=== PATIENT | female | born 1995 | race Caucasian/White ===

== ENCOUNTER 2024-04-09 16:11 | Observation (INO) ==
--- NOTE | 2024-04-09 16:28 | Emergency Department Note ---
ED Provider Note History of Present Illness Chief Complaint: Nausea Stated Complaint: NAUSEA,TROUBLE STANDING Time Seen by Provider: 04/09/24 16:25 28-year-old female who unfortunately returns to the emergency department with complaint of persistent nausea. I just discharged the patient for similar symptoms, requiring 2 rounds of IV Zofran, and a single dose of IV Phenergan for nausea control. She felt well enough for discharge, however when she left the emergency department, became nauseated again while in the parking lot. The p atient continues to deny any abdominal discomfort, reporting "feels like butterflies in my stomach". Home Medications Medication Instructions Recorded Confirmed Type bupropion HCl 100 mg tablet,12 hr 100 mg PO BID 04/09/24 04/09/24 History sustained-release fluoxetine 20 mg tablet 20 mg PO DAILY 04/09/24 04/09/24 History ibuprofen 200 mg tablet 200 mg PO Q6H PRN Pain 04/09/24 04/09/24 History metformin 500 mg tablet,extended 500 mg PO DAILY 04/09/24 04/09/24 History release 24 hr ondansetron 4 mg disintegrating 4 mg PO Q6H PRN nausea and 04/09/24 04/09/24 Rx tablet vomiting #10 tabs Allergies Allergy/AdvReac Type Severity Reaction Status Date / Time No Known Allergies Allergy Unverified 04/09/24 18:22 Past Med/Surg History Problem List (Updated 04/09/24 @ 19:54 by Morgan Abreu) Intractable nausea (Acute) Ileus (Acute) Anemia (Acute) Nausea and vomiting (Acute) Medical History Lactose intolerance Surgical History No significant past surgical history Social History Smoking Status: Never smoker Preferred Language: Maltese marital status: Single current occupational status: student Feels Safe at Home: Yes Physical Exam Vital Signs Vital Signs - 24 hr 04/09/24 16:21 04/09/24 19:30 04/09/24 19:39 Temperature 36.5 C Temperature Source Skin Pulse Rate 112 H 112 H 110 H Pulse Rate from SpO2 Sensor 110 H Respiratory Rate 19 20 Respiratory Effort / Characteristics Non-Labored Spontaneous Respiratory Depth Normal Respiratory Pattern Regular Blood Pressure 98/62 L 112/81 Blood Pressure Mean 74 91 Pulse Oximetry 100 100 Oxygen Delivery Method Room Air Room Air Sepsis Recent Fever Within 48 Hours No Sepsis New/Unexplained Change in Mental Status N/A Sepsis Action Taken by Nursing No Action Required 04/09/24 19:41 04/09/24 20:00 Temperature 37.4 C Temperature Source Oral Pulse Rate 111 H Pulse Rate from SpO2 Sensor 112 H Respiratory Rate 18 Respiratory Effort / Characteristics Respiratory Depth Respiratory Pattern Blood Pressure 100/79 Blood Pressure Mean 82 Pulse Oximetry 100 Oxygen Delivery Method Room Air Sepsis Recent Fever Within 48 Hours Sepsis New/Unexplained Change in Mental Status Sepsis Action Taken by Nursing CONSTITUTIONAL: Healthy and well nourished. Patient still appears nauseated. HEENT: Mucous membranes are moist. RESPIRATORY: Clear to auscultation bilaterally with no wheezing, crackles, rhonchi or stridor. CARDIOVASCULAR: Regular rate and rhythm with no murmurs, rubs or gallops. GASTROINTESTINAL: Bowel sounds present in all quadrants. Abdomen is minimally tender to palpation in all quadrants without rigidity, guarding or rebound. Negative CVA tenderness. MUSCULOSKELETAL: Full range of motion of all joints without discomfort. INTEGUMENTARY: No rash or other significant dermatologic conditions noted. HEMATOLOGIC: No ecchymosis or petechiae. PSYCHIATRIC: Positive affect. NEUROLOGIC: No focal neurologic deficits noted. Course Course Patient history and physical exam were performed. Review of triage labs shows a pulse of 112 bpm. She continues to remain afebrile and not hypoxic. Patient is mildly hypotensive at 98/62. IV access was reestablished, and the patient was hydrated with a liter normal saline. She was administered additional IV Phenergan. At this point, I did recommend CT imaging of the abdomen, and the patient was in agreement. CT imaging showed a mild ileus without any other concerning findings. I also did call the lab, and they were able to run a urine drug screen on the urine from her initial visit. Urine drug screen was positive for ecstasy, negative for marijuana. Upon reevaluation, the patient reported that she still felt nauseated. At this point, I did recommend reaching out to the [facility]ist service for further evaluation and possible observation. The patient was in agreement. The patient was ordered additional IV Compazine. I then discussed the case with Dr. Dolores Barksdale, [facility] hospitalist. Please see her dictation for further treatment and final disposition. Administered Medications Discontinued Medications Sodium Chloride (Nss) 1,000 mls @ 999 mls/hr IV .Q1H1M ONE Stop: 04/09/24 17:28 Last Infusion: 04/09/24 19:03 Dose: Infused Documented By: Admin: 04/09/24 16:46 Dose: 999 mls/hr Documented By: MICHAEL Promethazine HCl (Phenergan) 12.5 mg in 50.5 mls @ 202 mls/hr IV NOW STA Stop: 04/09/24 16:43 Last Infusion: 04/09/24 17:21 Dose: Infused Documented By: Admin: 04/09/24 16:46 Dose: 202 mls/hr Documented By: MICHAEL Prochlorperazine (Compazine) 1 mls @ 1 mls/min IV ONE ONE Stop: 04/09/24 18:24 Last Admin: 04/09/24 18:27 Dose: 1 mls/min Documented By: MICHAEL Ioversol (Optiray 320 100ml) 92 ml IV ONCE ONE Stop: 04/09/24 16:52 Last Admin: 04/09/24 16:52 Dose: 92 ml Documented By: YESICA Medical Decision Making Medical Records Attestation: I reviewed the patient's medical records. Home Medications was personally reviewed by me Laboratory Data Attestation: I reviewed the patient's lab results. Prior labs are summarized in her previous visit Imaging Data Attestation: I personally reviewed and interpreted this imaging study as follows: My Impression: My interpretation of a CT with IV contrast of the abdomen and pelvis shows an ileus without evidence for obstruction or other concerning findings. Radiologist report was also reviewed with concurrence. Radiologist's Impression: Abdomen/Pelvis CT 04/09/24 16:28 EXAM: CT Abdomen and Pelvis With Intravenous Contrast INDICATION: Nausea, vomiting and abdominal pain. TECHNIQUE: Axial computed tomography images of the abdomen and pelvis with intravenous contrast. Sagittal and coronal reformatted images were created and reviewed. This CT exam was performed using one or more of the following dose reduction techniques: automated exposure control, adjustment of the mA and/or kV according to patient size, and/or use of iterative reconstruction technique. CONTRAST: 92ml of Optiray 320 was administered intravenously. COMPARISON: No relevant prior studies available. FINDINGS: Limitations: None. Lung bases: No abnormality noted. Pleural space: No visualized pleural effusion or pneumothorax. Heart: No abnormality noted. Mediastinum: No abnormality noted. ABDOMEN: Liver: No abnormality noted. Gallbladder and bile ducts: No calcified stones or surrounding fluid. Pancreas: Homogeneous enhancement. No mass, inflammation or ductal dilation. Spleen: No significant abnormality noted. Adrenals: No significant abnormality noted. Kidneys and ureters: Simple left renal cyst/s. No simple cyst follow-up necessary. Right kidney appears normal. No renal stone, hydronephrosis or perinephric fluid. The right kidney appears normal. Stomach and bowel: Typical amounts of formed stool noted in the cecum, descending colon and rectum. There is mild prominent fluid layering in distal small bowel loops. No obstructing point. No thickening or inflammatory process noted. The stomach is collapsed and suboptimally assessed. PELVIS: Appendix: The appendix is not distinctly defined. No inflammatory process identified in its expected location. Bladder: No filling defects to suggest mass or large stone. No inflammation. Reproductive: Heterogeneous appearance of the uterus. Possible fibroid in the fundus measuring approximately 2.3 x 1.7 cm. ABDOMEN and PELVIS: Intraperitoneal space: No free air. No significant fluid collection. Bones/joints: No acute changes. Soft tissues: No significant abnormality noted. Vasculature: No abdominal aortic aneurysm. Lymph nodes: No pathologically enlarged lymph nodes. IMPRESSION: 1. Minimal nonspecific ileus without inflammatory process or obstruction. 2. Heterogeneous appearance of the uterus with possible fibroid. Consider nonemergent ultrasound. ACT 112: Negative or not required by law. Electronically signed by Marcia Hopkins 04-09-2024 5:10 PM MDM Narrative See ED Course section for further details of today's visit. The patient returns with complaint of persistent nausea after being evaluated in the emergency department by me shortly before this return. It is noted that the patient does have a mild leukocytosis, otherwise no other concerning findings. On her return visit, I did order a CT of the abdomen and pelvis which showed a mild ileus. I suspect this is from a viral infection. The patient has not received a total of four doses of IV antiemetics with persistent nausea. With intractable nausea, I do feel that further observation is warranted for adequate hydration and nausea control. The case was discussed with the [facility]ist service, who agrees with this plan. Impression Ileus, Intractable nausea Discharge Plan Visit Data Chief Complaint: Nausea Stated Complaint: NAUSEA,TROUBLE STANDING ED Provider: Rach Walton ED Midlevel Provider: Morgan Abreu Discharge Problem: Ileus, Intractable nausea Forms Stand Alone Forms: [facility] Prescriptions Prescriptions: No Action ondansetron 4 mg tablet,disintegrating 4 mg PO Q6H PRN (Reason: nausea and vomiting) Qty: 10 0RF bupropion HCl 100 mg tablet sustained-release 12 hr 100 mg PO BID fluoxetine 20 mg tablet 20 mg PO DAILY ibuprofen 200 mg Tablet 200 mg PO Q6H PRN (Reason: Pain) metformin 500 mg Tablet Extended Release 24 Hr 500 mg PO DAILY Referrals Referrals: Dagmar Viveros D.O. [Primary Care Provider] -
[2024-04-09] MEDS: SODIUM CHLORIDE 0.9% 1,000 ML IV ONE ×2 (16:46→21:20)
[2024-04-09] MEDS: PROMETHAZINE 12.5 MG/50.5 ML BAG IV STA (16:46)
[2024-04-09] MEDS: OPTIRAY 320 100ml IV ONE (16:52)
--- NOTE | 2024-04-09 17:11 | CT Scan Report ---
EXAM: CT Abdomen and Pelvis With Intravenous Contrast INDICATION: Nausea, vomiting and abdominal pain. TECHNIQUE: Axial computed tomography images of the abdomen and pelvis with intravenous contrast. Sagittal and coronal reformatted images were created and reviewed. This CT exam was performed using one or more of the following dose reduction techniques: automated exposure control, adjustment of the mA and/or kV according to patient size, and/or use of iterative reconstruction technique. CONTRAST: 92ml of Optiray 320 was administered intravenously. COMPARISON: No relevant prior studies available. FINDINGS: Limitations: None. Lung bases: No abnormality noted. Pleural space: No visualized pleural effusion or pneumothorax. Heart: No abnormality noted. Mediastinum: No abnormality noted. ABDOMEN: Liver: No abnormality noted. Gallbladder and bile ducts: No calcified stones or surrounding fluid. Pancreas: Homogeneous enhancement. No mass, inflammation or ductal dilation. Spleen: No significant abnormality noted. Adrenals: No significant abnormality noted. Kidneys and ureters: Simple left renal cyst/s. No simple cyst follow-up necessary. Right kidney appears normal. No renal stone, hydronephrosis or perinephric fluid. The right kidney appears normal. Stomach and bowel: Typical amounts of formed stool noted in the cecum, descending colon and rectum. There is mild prominent fluid layering in distal small bowel loops. No obstructing point. No thickening or inflammatory process noted. The stomach is collapsed and suboptimally assessed. PELVIS: Appendix: The appendix is not distinctly defined. No inflammatory process identified in its expected location. Bladder: No filling defects to suggest mass or large stone. No inflammation. Reproductive: Heterogeneous appearance of the uterus. Possible fibroid in the fundus measuring approximately 2.3 x 1.7 cm. ABDOMEN and PELVIS: Intraperitoneal space: No free air. No significant fluid collection. Bones/joints: No acute changes. Soft tissues: No significant abnormality noted. Vasculature: No abdominal aortic aneurysm. Lymph nodes: No pathologically enlarged lymph nodes. IMPRESSION: 1. Minimal nonspecific ileus without inflammatory process or obstruction. 2. Heterogeneous appearance of the uterus with possible fibroid. Consider nonemergent ultrasound. ACT 112: Negative or not required by law. Electronically signed by Marcia Hopkins 04-09-2024 5:10 PM
[2024-04-09] MEDS: PROCHLORPERAZINE 1 ML IV ONE (18:27)
--- NOTE | 2024-04-09 19:51 | History & Physical Report ---
Date of Service April 09, 2024 Assessment & Plan (1) Intractable nausea: Plan: 28yo female presenting with ongoing nausea, multiple episodes of non-bloody/non-bilious emesis. Patient wtih ongoing sinus tachycardia, blood pressure is adequate. Labs from earlier today with mild leukocytosis, no electrolyte derangement or SUGEY. CT as above with mild ileus. Patient reports that symptoms are slowly improving. She is asking for some Mary Teena -Observation to medical -Clear liquid diet -NSS at 125mL/hr x 2L -Zofran 4mg IV q 6 hours PRN -Compazine 5mg IV q 6 hours PRN -Tylenol PRN pain -Repeat chemistry and BMP in AM Plan Chronic Medical Conditions: Depression/Anxiety- -Continue Wellbutrin 100mg po BID -Continue Prozac 20mg po daily Pre-DM -Hold Metformin with ongoing GI distress F/E/N - NSS at 125mL/hr x 2L, electrolytes WNL, repeat labs in AM, Clear liquids as tolerated Ppx - Low risk for DVT, encourage ambulation Code - Full Dispo - Observation to medical History of Present Illness Chief Complaint: intractable nausea Primary Care Provider: Dagmar Viveros Magalys Lyles is a 28yo female presenting with one day of nausea, vomiting and PO intolerance. Patient reports waking this AM at 05:00 with the feeling of "butterflies" in her abdomen. She tried to go back to sleep but woke shortly later and vomited. She continued to vomit throughout the day - food and liquid, non-bloody/non-bilious. She was seen in the ER earlier this afternoon with these complaints and was administered IV Zofran and IV Phenergan with improvement in symptoms. She was discharged home with a prescription for Zofran ODT. She had recurrence of the nausea in the parking lot so returned to the ER. Overall she feels improved but still with ongoing nausea. She denies abdominal pain or distention, no diarrhea, no fever/chills/chest pain/cough or SOB. No URI symptoms. She recently traveled from [place]. No contacts with similar symptoms. She did eat at a pot-luck last night for school and had mashed potatoes, gravy and green beans. Is lactose intolerant. In the ER she is afebrile, tachycardic, blood pressure presently 98/62 ER Course: NSS x 1L Phenergan 12.5mg IV Compazine Allergies Allergy/AdvReac Type Severity Reaction Status Date / Time No Known Allergies Allergy Unverified 04/09/24 18:22 Home Medications Medication Instructions Recorded Confirmed Type bupropion HCl 100 mg tablet,12 hr 100 mg PO BID 04/09/24 04/09/24 History sustained-release fluoxetine 20 mg tablet 20 mg PO DAILY 04/09/24 04/09/24 History ibuprofen 200 mg tablet 200 mg PO Q6H PRN Pain 04/09/24 04/09/24 History metformin 500 mg tablet,extended 500 mg PO DAILY 04/09/24 04/09/24 History release 24 hr ondansetron 4 mg disintegrating 4 mg PO Q6H PRN nausea and 04/09/24 04/09/24 Rx tablet vomiting #10 tabs Past Med/Surg History Problem List (Updated 04/09/24 @ 19:54 by Morgan Abreu) Intractable nausea (Acute) Ileus (Acute) Anemia (Acute) Nausea and vomiting (Acute) Medical History Lactose intolerance Surgical History No significant past surgical history Social History Smoking Status: Never smoker Preferred Language: Kyrgyz marital status: Single current occupational status: student Feels Safe at Home: Yes Review of Systems Review of Systems: All systems reviewed & are unremarkable except as noted in HPI & below Physical Exam Physical Exam: Impressions Abdomen/Pelvis CT 04/09/24 16:28 EXAM: CT Abdomen and Pelvis With Intravenous Contrast INDICATION: Nausea, vomiting and abdominal pain. TECHNIQUE: Axial computed tomography images of the abdomen and pelvis with intravenous contrast. Sagittal and coronal reformatted images were created and reviewed. This CT exam was performed using one or more of the following dose reduction techniques: automated exposure control, adjustment of the mA and/or kV according to patient size, and/or use of iterative reconstruction technique. CONTRAST: 92ml of Optiray 320 was administered intravenously. COMPARISON: No relevant prior studies available. FINDINGS: Limitations: None. Lung bases: No abnormality noted. Pleural space: No visualized pleural effusion or pneumothorax. Heart: No abnormality noted. Mediastinum: No abnormality noted. ABDOMEN: Liver: No abnormality noted. Gallbladder and bile ducts: No calcified stones or surrounding fluid. Pancreas: Homogeneous enhancement. No mass, inflammation or ductal dilation. Spleen: No significant abnormality noted. Adrenals: No significant abnormality noted. Kidneys and ureters: Simple left renal cyst/s. No simple cyst follow-up necessary. Right kidney appears normal. No renal stone, hydronephrosis or perinephric fluid. The right kidney appears normal. Stomach and bowel: Typical amounts of formed stool noted in the cecum, descending colon and rectum. There is mild prominent fluid layering in distal small bowel loops. No obstructing point. No thickening or inflammatory process noted. The stomach is collapsed and suboptimally assessed. PELVIS: Appendix: The appendix is not distinctly defined. No inflammatory process identified in its expected location. Bladder: No filling defects to suggest mass or large stone. No inflammation. Reproductive: Heterogeneous appearance of the uterus. Possible fibroid in the fundus measuring approximately 2.3 x 1.7 cm. ABDOMEN and PELVIS: Intraperitoneal space: No free air. No significant fluid collection. Bones/joints: No acute changes. Soft tissues: No significant abnormality noted. Vasculature: No abdominal aortic aneurysm. Lymph nodes: No pathologically enlarged lymph nodes. IMPRESSION: 1. Minimal nonspecific ileus without in flammatory process or obstruction. 2. Heterogeneous appearance of the uter us with possible fibroid. Consider nonemergent ultrasound. ACT 112: Negative or not required by law. Electronically signed by Marcia Hopkins 04-09-2024 5:10 PM Results & Data Results & Data Vital Signs (Past 12 Hours) Vital Signs Temp Pulse Resp BP Pulse Ox O2 Del Method 04/09/24 19:39 110 H 20 112/81 100 Room Air 04/09/24 19:30 112 H 04/09/24 16:21 36.5 C 112 H 19 98/62 L 100 Room Air Laboratory Results Impressions Abdomen/Pelvis CT 04/09/24 16:28 EXAM: CT Abdomen and Pelvis With Intravenous Contrast INDICATION: Nausea, vomiting and abdominal pain. TECHNIQUE: Axial computed tomography images of the abdomen and pelvis with intravenous contrast. Sagittal and coronal reformatted images were created and reviewed. This CT exam was performed using one or more of the following dose reduction techniques: automated exposure control, adjustment of the mA and/or kV according to patient size, and/or use of iterative reconstruction technique. CONTRAST: 92ml of Optiray 320 was administered intravenously. COMPARISON: No relevant prior studies available. FINDINGS: Limitations: None. Lung bases: No abnormality noted. Pleural space: No visualized pleural effusion or pneumothorax. Heart: No abnormality noted. Mediastinum: No abnormality noted. ABDOMEN: Liver: No abnormality noted. Gallbladder and bile ducts: No calcified stones or surrounding fluid. Pancreas: Homogeneous enhancement. No mass, inflammation or ductal dilation. Spleen: No significant abnormality noted. Adrenals: No significant abnormality noted. Kidneys and ureters: Simple left renal cyst/s. No simple cyst follow-up necessary. Right kidney appears normal. No renal stone, hydronephrosis or perinephric fluid. The right kidney appears normal. Stomach and bowel: Typical amounts of formed stool noted in the cecum, descending colon and rectum. There is mild prominent fluid layering in distal small bowel loops. No obstructing point. No thickening or inflammatory process noted. The stomach is collapsed and suboptimally assessed. PELVIS: Appendix: The appendix is not distinctly defined. No inflammatory process identified in its expected location. Bladder: No filling defects to suggest mass or large stone. No inflammation. Reproductive: Heterogeneous appearance of the uterus. Possible fibroid in the fundus measuring approximately 2.3 x 1.7 cm. ABDOMEN and PELVIS: Intraperitoneal space: No free air. No significant fluid collection. Bones/joints: No acute changes. Soft tissues: No significant abnormality noted. Vasculature: No abdominal aortic aneurysm. Lymph nodes: No pathologically enlarged lymph nodes. IMPRESSION: 1. Minimal nonspecific ileus without inflammatory process or obstruction. 2. Heterogeneous appearance of the uterus with possible fibroid. Consider nonemergent ultrasound. ACT 112: Negative or not required by law. Electronically signed by Marcia Hopkins 04-09-2024 5:10 PM Diagnostic Findings From ER visit Earlier: WBC=12.01 Hgb=10.2 Hct=32.2 ECG Additional Comments: EKG wtih ST at 109bpm, normal axis, GQ=443, QRSk=84, PTi=227, no acute ischemic changes PG Care Time/CCT Total # of Minutes Spent Total Time Spent with Patient: Total time spent is greater than 50% in coordination of care (as documented) at patient's floor/unit and/or counseling patient: Coding Level of Care Code 13082 INT INP/OBS CARE 2/55MIN Diagnoses Intractable nausea R11.0
[2024-04-09] MEDS: ACETAMINOPHEN 1000 MG/100 ML IV IV ONE (21:15)
[2024-04-09] MEDS: ACETAMINOPHEN 1,000 MG/100 ML VIAL IV STA (21:16)
[2024-04-09] MEDS ORDERED: ONDANSETRON INJ 2 MG/ML 2 ML VIAL IV PRN (22:37)
[2024-04-09] MEDS ORDERED: PROCHLORPERAZINE 5 MG in SYRINGE 4 ML IV PRN (22:37)
[2024-04-09] MEDS: buPROPion SR 100 MG TABCR PO SCH (23:16)
[2024-04-09] MEDS: SODIUM CHLORIDE 0.9% 1,000 ML IV SCH (23:16)
--- NOTE | 2024-04-10 01:26 | XRay Report ---
EXAM: XR chest 1V portable CLINICAL HISTORY: FEVER NOT PREG WTW TECHNIQUE: An X-ray image of the chest is obtained in AP projection. COMPARISON: No prior studies are available for comparison. FINDINGS: Pulmonary Parenchyma: Possible infiltrates in left lung lower zone No evidence of consolidation, collapse. No pulmonary nodules are identified. Minimal blunting of both costophrenic angle seen Heart and Mediastinum: Heart size and shape are normal. No mediastinal widening or masses. Both saqib appear prominent Bony Thorax: Bony thorax appears intact without fractures or deformities. Soft Tissues: Soft tissues overlying the chest wall are unremarkable. IMPRESSION: 1. Possible infiltrates in the left lung lower zone, raising the suspicion of infection 2. Minimal blunting of both costophrenic angles is likely due to pleural thickening/small effusion. Ultrasound correlation is advised 3. Bilateral hilar Vascular congestion with possibility of bilateral hilar lymph nodes. Electronically signed by Rick Hicks 04-10-2024 01:26 AM
[2024-04-10 01:56] LABS: Adenovirus PCR Not Detected (NotDetected); Bordetella parapertussis PCR Not Detected (NotDetected); Bordetella pertussis PCR Not Detected (NotDetected); Chlamydia pneumoniae PCR Not Detected (NotDetected); Coronavirus 229E PCR Not Detected (NotDetected); Coronavirus CoV-2 (COVID19)PCR Not Detected (NotDetected); Coronavirus HKU1 PCR Not Detected (NotDetected); Coronavirus NL63 PCR Not Detected (NotDetected); Coronavirus OC43PCR Not Detected (NotDetected); Human Metapneumovirus PCR Not Detected (NotDetected); Influenza A PCR Not Detected (NotDetected); Influenza B PCR Not Detected (NotDetected); Mycoplasma pneumoniae PCR Not Detected (NotDetected); Parainfluenza Virus 1 PCR Not Detected (NotDetected); Parainfluenza Virus 2 PCR Not Detected (NotDetected); Parainfluenza Virus 3 PCR Not Detected (NotDetected); Parainfluenza Virus 4 PCR Not Detected (NotDetected); Respiratory Syncytial VirusPCR Not Detected (NotDetected); Rhinovirus/Enterovirus PCR Not Detected (NotDetected)
[2024-04-10 05:53] LABS: Hematocrit (blood only) 24.6 % (37.0-47.0); Hemoglobin 7.8 g/dl (12.0-16.0); Mean Corpuscular Hemoglobin 24.7 pg (25.0-34.0); Mean Corpuscular Hgb Conc 31.7 g/dL (32.0-36.0); Mean Corpuscular Volume 77.8 fL (80.0-100.0); Mean Platelet Volume 10.8 fL (9.4-12.4); Platelet Count 210 K/uL (130-400); RDW Coefficient of Variation 17.5 % (11.5-14.5); RDW Standard Deviation 49.2 fL (36.4-46.3); Red Blood Count 3.16 M/uL (4.20-5.40)
[2024-04-10 06:12] LABS: Calcium 7.4 mg/dl (8.6-10.3); Creatinine Clr Calc Pharmacy 87.5 ml/min; Magnesium 1.7 mg/dl (1.7-2.4); Potassium 3.7 mmol/L (3.5-5.1)
--- NOTE | 2024-04-10 08:00 | Hospitalist Progress Note ---
Date of Service April 10, 2024 Assessment & Plan (1) Intractable nausea: Plan: 28yo female presenting with ongoing nausea, multiple episodes of non-bloody/non-bilious emesis. Patient wtih ongoing sinus tachycardia, blood pressure is adequate. Labs from earlier today with mild leukocytosis, no electrolyte derangement or SUGEY. CT as above with mild ileus. Of note, ER visit 04/09 reporting possible food poisoning/pot luck at school Obs medical IVF continued x 2 L NSS KUB on repeat w/o ileus/obstruction and does have +BS but denies passing gas. No vomiting but will monitor on clears Hgb 7.8 but notable did get 2L IVF on admission and continued on NS @ 125cc/hr and suspect some aspect of dilution but also on day 5 of very heavy mensus/period --> Pelvic US noting Multiple fibroids are seen as above. The endometrium is unremarkable in this patient with heavy menstrual flow. Iron studies obtained given microcytosis and LOW Iron 10, TIBC 354, Transferrin 253, Trans % sat 3, ferritin 19. Venofer IV has been ordered and will plan to continue daily. Suspect GIOVANA contributing to her tachycardia/syncope w/ heavy menses. Notable did have fever/blood cx obtained but doesn't appear infectious. Fecal occult to be obtained with next BM as below to ensure no GIB, but no significant upper abd tenderness to suggest and just finishing her period Likely benefit from [facility] f/u for fibroids. Discussed w/ supervising provider and given young age/menses, defer on any PRBC but will monitor focb. PPI bid empirically added, notable did take some ibuprofen but doesn't not appear significant use and reported 4-6 tablets past week for pain related to period. UA w/ 2+ blood but suspect related to bleeding from her period but should have repeat UA once done with such to ensure resolved Continue antiemetics, Tylenol as needed for fever/pain Monitor labs/exam in AM, further testing pending ongoing fevers, peripheral smear ordered (2) Tachycardia: Plan: CXR on admission w/ reported infiltrates left lung lower zone raising suspicion for infection with blunting of costophrenic angles --> IVF has been provided, repeat CXR obtained given temp overnight and infiltrates appear less conspicious per report however did send for blood cultures but defer on abx at this time and will add procal to AM labs and f/u blood cx UA not appearing infected/no bacteria, does note blood (suspected from having menses) HR appears improving with Venofer/IVF however remains slightly tachycardic however again as above has had heavy bleeding from period/fibroids on uterus and will monitor Biofire sent given temp, negative Peripheral smear added given anemia, grandmother with sickle cell but denies personal history of such. Denies pleuritic CP at this time/on room air however did drive from [place] to [place] as missed flight. Denies any leg swelling this past week either but will monitor. Defer chemoproph given heavy bleeding at this time but will place SCDs. Will also add Ddimer for completeness but notable no hypoxia If ongoing bleeding following completion of period may need to reach out to [facility] given US (3) Microcytosis: Plan: with acute on chronic anemia from heavy bleeding, notable MCV <80 at 77 and Iron studies obtained: Iron 10, TIBC 354, Transferrin 253, Trans % sat 3, ferritin 19 --Venofer IV has been ordered and will continue. Suspect 2nd to menses however checking fecal occult (denied blood in stool/dark tarry color however did have some recent NSAID use but not heavy) No hx inflammatory bowel disease, does have hx lactose intolerance Reports grandmother with sickle cell but no personal hx Peripheral smear pending for further eval to ensure no abn findings Avoid NSAIDs w/ bleeding/anemia Monitor CBC in AM, TSH/LDH as well (4) Anemia: Plan: suspected acute on chronic with her period but will add additional testing for eval, check fecal occult with next bowel movement and continue venofer replacement. monitor CBC in AM, avoid NSAID Plan Depression/Anxiety- -Continue Wellbutrin 100mg po BID -- changed to 200mg qam -Continue Prozac 20mg po daily Pre-DM -Hold Metformin with ongoing GI distress, Dispo: continued inpatient stay, monitoring blood counts/bowel movements. possible [facility]/GI consult if needed however suspected from being actively on her period. Blood cultures sent given temp/biofire negative, can check stool biofire given concerns for possible food poisioning/illness [employer]. Discussed with supervising provider and defer on abx at this time/monitor Given tachycardia/hypotension on arrival and now with temp, ddimer added, if positive will need CTA chest/tx to monitored bed and likely need some transfusion support however she DENIED pleuritc CP and is not hypoxic Admission and Anticipated Discharge Date Admission Date: April 09, 2024 Supervising Physician Co-Signing Physician Notes The patient was not seen by me. The chart was reviewed. Case discussed with RICARDO Harris. Agree with assessment and plan Subjective Eval this morning, resting in bed, NAD but reporting having some upper abdominal discomfort, coming/going and getting tylenol. Is hungry, +BS on exam but denies passing gas and discussed would not advance diet given concerns for ileus. She does report taking 4-6 ibuprofen over the past week for discomfort from her period, does endorse heavy menses and is currently on her period. Discussed iron studies/hemoglobin and IV iron replacement. Did have temp overnight, denies SOB at this time or pain with inspiration. No personal/family hx of PE. Does have grandmother with sickle cell and report trait but never had any issues with such. Denied any leg swelling in past week, did miss connecting flight from [place] and drove 3-4 hours in the car. Plans to continue clears, check stool for bleeding (denied any). Notable she is on last day of her period and could also contribute to her hgb given heavy bleeding. NO family hx inflammatory bowel disease/crohn/colitis or other. She reports only family hx is diabetes. Physical Exam 2 Physical Exam: General: 28 yo female laying in bed, NAD but reporting discomfort to upper abdomen come/going, no overt tenderness HEENT: head atraumatic, normocephalic, mm dry Resp: CTA, slightly diminished in the bases, no wheezing/rales GI: +BS, slightly slow but no over tenderness/guarding/rebound : voiding spontaneously, reports on her period at present time MSK/Neuro; nonfocal but generalized fatigue Psych: AOx3, fatigued appearing Results & Data Results & Data Vital Signs (Past 12 Hours) Vital Signs Temp Pulse Pulse Resp BP BP Pulse Ox 04/09/24 23:21 36.8 C 118 H 16 106/72 99 04/09/24 22:15 37.9 C H 117 H 18 109/68 97 04/09/24 21:33 111 H 18 106/74 100 04/09/24 20:54 116 H 22 105/72 97 04/09/24 20:46 38.1 C H 04/09/24 20:30 107 H 15 106/80 99 04/09/24 20:00 111 H 18 100/79 100 O2 Del Method 04/09/24 23:21 Room Air 04/09/24 22:15 Room Air 04/09/24 21:33 Room Air 04/09/24 20:54 Room Air 04/09/24 20:46 04/09/24 20:30 Room Air 04/09/24 20:00 Room Air Laboratory Results 04/10/24 12:46 04/10/24 05:11 MCV 77.8 Mag 1.7 Iron 10, TIBC 354, Transferrin 253, Trans % sat 3, ferritin 19 Diagnostic Findings Abdomen/Pelvis CT 04/09/24 16:28 EXAM: CT Abdomen and Pelvis With Intravenous Contrast INDICATION: Nausea, vomiting and abdominal pain. TECHNIQUE: Axial computed tomography images of the abdomen and pelvis with intravenous contrast. Sagittal and coronal reformatted images were created and reviewed. This CT exam was performed using one or more of the following dose reduction techniques: automated exposure control, adjustment of the mA and/or kV according to patient size, and/or use of iterative reconstruction technique. CONTRAST: 92ml of Optiray 320 was administered intravenously. COMPARISON: No relevant prior studies available. FINDINGS: Limitations: None. Lung bases: No abnormality noted. Pleural space: No visualized pleural effusion or pneumothorax. Heart: No abnormality noted. Mediastinum: No abnormality noted. ABDOMEN: Liver: No abnormality noted. Gallbladder and bile ducts: No calcified stones or surrounding fluid. Pancreas: Homogeneous enhancement. No mass, inflammation or ductal dilation. Spleen: No significant abnormality noted. Adrenals: No significant abnormality noted. Kidneys and ureters: Simple left renal cyst/s. No simple cyst follow-up necessary. Right kidney appears normal. No renal stone, hydronephrosis or perinephric fluid. The right kidney appears normal. Stomach and bowel: Typical amounts of formed stool noted in the cecum, descending colon and rectum. There is mild prominent fluid layering in distal small bowel loops. No obstructing point. No thickening or inflammatory process noted. The stomach is collapsed and suboptimally assessed. PELVIS: Appendix: The appendix is not distinctly defined. No inflammatory process identified in its expected location. Bladder: No filling defects to suggest mass or large stone. No inflammation. Reproductive: Heterogeneous appearance of the uterus. Possible fibroid in the fundus measuring approximately 2.3 x 1.7 cm. ABDOMEN and PELVIS: Intraperitoneal space: No free air. No significant fluid collection. Bones/joints: No acute changes. Soft tissues: No significant abnormality noted. Vasculature: No abdominal aortic aneurysm. Lymph nodes: No pathologically enlarged lymph nodes. IMPRESSION: 1. Minimal nonspecific ileus without inflammatory process or obstruction. 2. Heterogeneous appearance of the uterus with possible fibroid. Consider nonemergent ultrasound. ACT 112: Negative or not required by law. Electronically signed by Marcia Hopkins 04-09-2024 5:10 PM Chest X-Ray 04/10/24 00:31 EXAM: XR chest 1V portable CLINICAL HISTORY: FEVER NOT PREG WTW TECHNIQUE: An X-ray image of the chest is obtained in AP projection. COMPARISON: No prior studies are available for comparison. FINDINGS: Pulmonary Parenchyma: Possible infiltrates in left lung lower zone No evidence of consolidation, collapse. No pulmonary nodules are identified. Minimal blunting of both costophrenic angle seen Heart and Mediastinum: Heart size and shape are normal. No mediastinal widening or masses. Both saqib appear prominent Bony Thorax: Bony thorax appears intact without fractures or deformities. Soft Tissues: Soft tissues overlying the chest wall are unremarkable. IMPRESSION: 1. Possible infiltrates in the left lung lower zone, raising the suspicion of infection 2. Minimal blunting of both costophrenic angles is likely due to pleural thickening/small effusion. Ultrasound correlation is advised 3. Bilateral hilar Vascular congestion with possibility of bilateral hilar lymph nodes. Electronically signed by Rick Hicks 04-10-2024 01:26 AM Pelvis Ultrasound 04/10/24 06:41 US pelvic complete CLINICAL HISTORY: heterogenous uterus noted on CT TECHNIQUE: Real-time sonographic images of the pelvic contents were obtained with transabdominal and transvaginal technique. Comparison: Comparison is made to CT abdomen pelvis 04/09/2024 FINDINGS: The uterus measures 7.9 x 4.0 x 7.4 cm. The endometrial cavity echo stripe measures 0.4 cm in thickness. Multiple fibroids are seen, largest on the right measuring 2.7 x 2.1 x 2.8 cm, likely subserosal, and a posterior myometrial fibroid measuring 1.9 x 2.3 x 2.0 cm. The right ovary measures 4.0 x 1.8 x 2.3 cm. The left ovary measures 3.1 x 1.5 x 4 cm. Normal appearance of the ovaries bilaterally. Doppler flow is seen bilaterally. There was no fluid in the cul-de-sac. IMPRESSION: Multiple fibroids are seen as above. The endometrium is unremarkable in this patient with heavy menstrual flow. ACT 112: Negative or not required by law. Electronically signed by: Alan Franco M.D. 04/10/2024 9:48 AM Chest X-Ray 04/10/24 08:00 XR chest 1V portable CLINICAL HISTORY: f/u TECHNIQUE: Single frontal radiograph of the chest was obtained. Comparison: Comparison is made to chest radiograph 04/10/2024 FINDINGS: No lines and tubes are seen. The cardiomediastinal silhouette is normal. The lungs are clear, previously noted left lower lung densities are less conspicuous on this exam. No evidence of pleural effusion or pneumothorax. IMPRESSION: No acute abnormalities and in particular no radiographic evidence of pneumonia. ACT 112: Negative or not required by law. Electronically signed by: Alan Franco M.D. 04/10/2024 9:49 AM KUB X-Ray 04/10/24 08:02 XR KUB/Abdomen 1 view CLINICAL HISTORY: f/u ileus TECHNIQUE: 1 view of the abdomen was obtained. Comparison: Comparison is made to CT abdomen pelvis 04/09/2024 FINDINGS: Lung bases are unremarkable. The osseous structures are grossly unremarkable. A paucity of small bowel gas is seen. Small stool burden is seen. IMPRESSION: There is a paucity of small bowel gas limiting evaluation. Small stool burden is seen. ACT 112: Negative or not required by law. Electronically signed by: Alan Franco M.D. 04/10/2024 9:53 AM PG Care Time/CCT Total # of Minutes Spent Total Time Spent with Patient: Total time spent is greater than 50% in coordination of care (as documented) at patient's floor/unit and/or counseling patient: Coding Level of Care Code 41805 SUB INP/OBS CARE 3/50MIN Diagnoses Intractable nausea R11.0 Tachycardia R00.0 Microcytosis R71.8 Anemia D64.9
[2024-04-10] MEDS: IRON SUCROSE 300 MG in SODIUM CHLORIDE 0.9% 250 ML IV ONE (09:29)
[2024-04-10] MEDS: PANTOprazole 40 MG TAB PO SCH (09:29)
[2024-04-10] MEDS: ACETAMINOPHEN 325 MG TAB PO PRN (09:29)
[2024-04-10] MEDS: FLUoxetine HCL 20 MG CAP PO SCH (09:30)
--- NOTE | 2024-04-10 09:50 | XRay Report ---
XR chest 1V portable CLINICAL HISTORY: f/u TECHNIQUE: Single frontal radiograph of the chest was obtained. Comparison: Comparison is made to chest radiograph 04/10/2024 FINDINGS: No lines and tubes are seen. The cardiomediastinal silhouette is normal. The lungs are clear, previou sly noted left lower lung densities are less conspicuous on this exam. No evidence of pleural effusio n or pneumothorax. IMPRESSION: No acute abnormalities and in particular no radiographic evidence of pneumonia. ACT 112: Negative or not required by law. Electronically signed by: Alan Franco M.D. 04/10/2024 9:49 AM
--- NOTE | 2024-04-10 09:50 | Ultrasound Report ---
US pelvic complete CLINICAL HISTORY: heterogenous uterus noted on CT TECHNIQUE: Real-time sonographic images of the pelvic contents were obtained with transabdominal and transvaginal technique. Comparison: Comparison is made to CT abdomen pelvis 04/09/2024 FINDINGS: The uterus measures 7.9 x 4.0 x 7.4 cm. The endometrial cavity echo stripe measures 0.4 cm in thickne ss. Multiple fibroids are seen, largest on the right measuring 2.7 x 2.1 x 2.8 cm, likely subserosal, and a posterior myometrial fibroid measuring 1.9 x 2.3 x 2.0 cm. The right ovary measures 4.0 x 1.8 x 2.3 cm. The left ovary measures 3.1 x 1.5 x 4 cm. Normal appeara nce of the ovaries bilaterally. Doppler flow is seen bilaterally. There was no fluid in the cul-de-sac. IMPRESSION: Multiple fibroids are seen as above. The endometrium is unremarkable in this patient with heavy menst rual flow. ACT 112: Negative or not required by law. Electronically signed by: Alan Franco M.D. 04/10/2024 9:48 AM
--- NOTE | 2024-04-10 09:54 | XRay Report ---
XR KUB/Abdomen 1 view CLINICAL HISTORY: f/u ileus TECHNIQUE: 1 view of the abdomen was obtained. Comparison: Comparison is made to CT abdomen pelvis 04/09/2024 FINDINGS: Lung bases are unremarkable. The osseous structures are grossly unremarkable. A paucity of small paulina l gas is seen. Small stool burden is seen. IMPRESSION: There is a paucity of small bowel gas limiting evaluation. Small stool burden is seen. ACT 112: Negative or not required by law. Electronically signed by: Alan Franco M.D. 04/10/2024 9:53 AM
[2024-04-10 10:28] LABS: Reticulocyte % 1.22 % (0.50-2.00); Reticulocytes # 0.04 10^6/uL (0.020-0.100)
[2024-04-10] MEDS ORDERED: Nursing to Pharmacy Communication SCH (12:30)
[2024-04-10 13:21] LABS: Hematocrit (blood only) 24.7 % (37.0-47.0); Hemoglobin 7.7 g/dl (12.0-16.0); Mean Corpuscular Hemoglobin 24.4 pg (25.0-34.0); Mean Corpuscular Hgb Conc 31.2 g/dL (32.0-36.0); Mean Corpuscular Volume 78.4 fL (80.0-100.0); Mean Platelet Volume 10.6 fL (9.4-12.4); Platelet Count 202 K/uL (130-400); RDW Coefficient of Variation 17.8 % (11.5-14.5); RDW Standard Deviation 50.7 fL (36.4-46.3); Red Blood Count 3.15 M/uL (4.20-5.40); White Blood Count 5.42 K/ul (4.8-10.8)
[2024-04-10] MEDS: MAGNESIUM SULFATE / D5W 1 GM/100 ML BAG IV ONE (14:35)
[2024-04-10] MEDS: buPROPion SR 100 MG TABCR PO ONE (17:29)
[2024-04-10 18:50] LABS: D Dimer 1930 ug/L FEU (0-500)
[2024-04-10] MEDS: OPTIRAY 320 125ml IV ONE (20:39)
--- NOTE | 2024-04-10 20:50 | Electrocardiogram Report ---
Test Reason : Blood Pressure : */* mmHG Vent. Rate : 109 BPM Atrial Rate : 109 BPM P-R Int : 134 ms QRS Dur : 84 ms QT Int : 328 ms P-R-T Axes : 61 32 59 degrees QTcB Int : 441 ms Sinus tachycardia Incomplete right bundle branch block No previous ECGs available Confirmed by Tai Cantu ([id number]) on 04/10/2024 8:49:40 PM Referred By: REFERRED SELF Confirmed By: Tai Cantu
[2024-04-10 22:40] LABS: Appearance Urine Clear (Clear); Bacteria Urine Automated None Seen (None Seen); Bilirubin Urine Negative (Negative); Blood Urine 1+ (Negative); Cast Urine Automated 0-2 /lpf (0-2); Color Urine Yellow; Epithelial Cell Urine Auto 0-2 /hpf (0-2); Glucose Urine UA Negative (Negative); Ketones Urine Negative (Negative); Leukocyte Esterase Urine Negative (Negative); Nitrite Urine Negative (Negative); Protein Urine Negative (Negative); Specific Gravity Urine 1.022 (1.000-1.030); Urobilinogen Urine Negative (Negative); WBC Urine Automated 0-5 /hpf (0-5); pH Urine 6.5 (4.5-7.5)
--- NOTE | 2024-04-10 23:04 | CT Scan Report ---
Exam(s): CTA CHEST IV Amt: 119ml opti 320 EXAM: CT Angiography Chest With Intravenous Contrast CLINICAL HISTORY: Evaluate for potential pulmonary embolism. TECHNIQUE: Axial computed tomographic angiography images of the chest with intravenous contrast. CTDI is 15.11 mGy and DLP is 378.46 mGy-cm. Automated exposure control was utilized for the study. A dose lowering technique was utilized adhering to the principles of ALARA. MIP reconstructed images were created and reviewed. COMPARISON: No relevant prior studies available. FINDINGS: Limitations: There is mild respiratory artifact, which minimally degrades image quality on multiple image slices. Pulmonary arteries: Accounting for mild respiratory artifact, there is no definite evidence for pulmonary embolism. Aorta: No acute findings. No thoracic aortic aneurysm. Lungs: Expiratory lung volumes with expected dependent subsegmental atelectatic changes. No focal airspace consolidation. Pleural space: Unremarkable. No significant effusion. No pneumothorax. Heart: Unremarkable. No cardiomegaly. No significant pericardial effusion. Bones/joints: No acute fracture. No dislocation. Soft tissues: Unremarkable. Lymph nodes: Unremarkable. No enlarged lymph nodes. IMPRESSION: 1. Accounting for mild respiratory artifact, there is no definite evidence for pulmonary embolism. 2. Expiratory lung volumes with expected dependent subsegmental atelectatic changes. No focal airspace consolidation. No pleural effusion or pneumothorax. Electronically signed by: Angus Ryan MD 04/10/24 23:03 PM
--- NOTE | 2024-04-11 02:35 | OB/GYN Consultation ---
Date of Consultation April 11, 2024 Assessment & Plan (1) History of heavy periods: 28-year-old G0 female who was admitted for anemia, nausea vomiting and heavy periods, found to have fibroid uterus vital signs stable afebrile, She is finishing her period at this point, denies VB, and pain, She received IV iron discussed the fibroids and treatment options with her Fibroids are benign muscular tumors of the uterus. No intervention needed unless they cause symptoms like abnormal uterine bleeding or pain. Discussed options of her menstrual bleeding, including but not limited to control pills, hormonal therapy, intrauterine device with progesterone, Mirena, Patient understands all and she does not start any control pills but she will think about Mirena. Recommended follow-up in office for repeat Pap smear as well as possible IUD Mirena placement if she decides for, I will send a message to our office and they will call her with appointment, All questions were answered. (2) Fibroid, uterine: (3) Microcytosis: (4) Anemia: History of Present Illness Attending Physician: Alex Cuba MD History of Present Illness patient is a 28-year-old G0 female who was admitted to medicine service for anemia. She reported heavy menstrual period and was ordered pelvic ultrasound which showed fibroid uterus. And I was called for consult. He states her periods have been always heavy and since menarche which was 13 years old. They last for 5 to 6 days and some days are heavy, using up to 4-5 pads a day, passing dime size clots. She does not have pain with them. She was recommended control pills in the past but she did not like them, she had multiple side effects and she states she is not interested in control pills. She has not been sexually active for over a year. she denies any history of STDs including chlamydia gonorrhea herpes, She had Pap smear last year at [place] where she came from and it was slightly abnormal she did not have colposcopy nor biopsies she was told that she should follow-up in a year. She is willing to come to our office for a follow-up and Pap smear. Right now she is at the end of her period And is not heavy, she denies any pelvic pain. Allergies Allergy/AdvReac Type Severity Reaction Status Date / Time No Known Allergies Allergy Unverified 04/09/24 18:22 Home Medications Medication Instructions Recorded Confirmed Type bupropion HCl 100 mg tablet,12 hr 100 mg PO BID 04/09/24 04/09/24 History sustained-release fluoxetine 20 mg tablet 20 mg PO DAILY 04/09/24 04/09/24 History ibuprofen 200 mg tablet 200 mg PO Q6H PRN Pain 04/09/24 04/09/24 History metformin 500 mg tablet,extended 500 mg PO DAILY 04/09/24 04/09/24 History release 24 hr ondansetron 4 mg disintegrating 4 mg PO Q6H PRN nausea and 04/09/24 04/09/24 Rx tablet vomiting #10 tabs Patient History Medical History Lactose intolerance Surgical History No significant past surgical history Social History Smoking Status: Never smoker Hx Alcohol Use: No Hx Substance Use: No (PT STATES "NO" BUT TESTED + FOR ECTASY ON ADMIT) Preferred Language: Bahraini Communication Ability: Effective Protein Purification Scientist Required: No Beliefs That Will Affect Care: None marital status: Single Current Living Situation: Alone current occupational status: student Feels Safe at Home: Yes Safety Concerns: Feels Safe At This Time Assistive Devices: Glasses Physical Exam Constitutional: WD/WN, vitals as above well developed, well nourished and comfortable Gastrointestinal (Abdomen): normal bowel sounds, soft, nontender, no hepatosplenomegaly Genitourinary: deferred Results & Data Vital Signs (Past 12 Hours) Vital Signs Temp Pulse Pulse Resp BP BP Pulse Ox 04/10/24 21:58 108 H 04/10/24 21:00 04/10/24 21:00 36.8 C 109 H 16 113/78 100 04/10/24 20:58 106 H 04/10/24 17:32 37.1 C 98 H 16 114/80 99 O2 Del Method 04/10/24 21:58 04/10/24 21:00 Room Air 04/10/24 21:00 Room Air 04/10/24 20:58 04/10/24 17:32 Room Air Laboratory Results Lab Results 01/03/2304/10/24 04/10/24 Range/Units 00:58 05:11 09:21 WBC 8.00 (4.8-10.8) K/ul RBC 3.16 L (4.20-5.40) M/uL Hgb 7.8 L (12.0-16.0) g/dl Hct 24.6 L (37.0-47.0) % MCV 77.8 L (80.0-100.0) fL MCH 24.7 L (25.0-34.0) pg MCHC 31.7 L (32.0-36.0) g/dL RDW Std Deviation 49.2 H (36.4-46.3) fL RDW Coeff of Luisa 17.5 H (11.5-14.5) % Plt Count 210 (130-400) K/uL MPV 10.8 (9.4-12.4) fL Reticulocyte % (Auto) 1.22 (0.50-2.00) % Reticulocyte # 0.040 (0.020-0.100) 10^6/uL D-Dimer (0-500) ug/L FEU Sodium 141 (136-145) mmol/L Potassium 3.7 (3.5-5.1) mmol/L Chloride 112 H (98-107) mmol/L Carbon Dioxide 23 (21-32) mmol/L Anion Gap 6 (3-11) BUN 7 (6-23) mg/dl Creatinine 0.70 (0.6-1.2) mg/dl Est Cr Clr Drug Dosing 87.5 ml/min eGFR 122.25 BUN/Creatinine Ratio 10.0 (10-20) Glucose 74 (70-99(Fasting)) mg/dl Calcium 7.4 L (8.6-10.3) mg/dl Magnesium 1.7 (1.7-2.4) mg/dl Iron 10 L (35-150) mcg/dl TIBC 354 (250-450) mcg/dl Transferrin 253 (200-360) mg/dl Transferrin % Sat 3 L (15-50) % Ferritin 19.0 (8-388) ng/ml Urine Color Urine Appearance (Clear) Urine pH (4.5-7.5) Ur Specific [place] (1.000-1.030) Urine Protein (Negative) Urine Glucose (UA) (Negative) Urine Ketones (Negative) Urine Blood (Negative) Urine Nitrite (Negative) Urine Bilirubin (Negative) Urine Urobilinogen (Negative) Ur Leukocyte Esterase (Negative) Urine WBC (Auto) (0-5) /hpf Urine RBC (Auto) (0-2) /hpf U Hyaline Cast (Auto) (0-2) /lpf U Epithel Cells (Auto) (0-2) /hpf Urine Bacteria (Auto) (None Seen) Adenovirus (PCR) Not Detected (NotDetected) B. pertussis DNA (PCR) Not Detected (NotDetected) B.parapertussis DNA PCR Not Detected (NotDetected) C. pneumoniae DNA (PCR) Not Detected (NotDetected) Coronavirus OC43 (PCR) Not Detected (NotDetected) Coronavirus HKU1 (PCR) Not Detected (NotDetected) Coronavirus 229E (PCR) Not Detected (NotDetected) SARS-CoV-2 (PCR) Not Detected (NotDetected) Coronavirus NL63 (PCR) Not Detected (NotDetected) Human Metapneumovir PCR Not Detected (NotDetected) Influenza Type A (PCR) Not Detected (NotDetected) Influenza Type B (PCR) Not Detected (NotDetected) M. pneumoniae (PCR) Not Detected (NotDetected) Parainfluenza 1 (PCR) Not Detected (NotDetected) Parainfluenza 2 (PCR) Not Detected (NotDetected) Parainfluenza 3 (PCR) Not Detected (NotDetected) Parainfluenza 4 (PCR) Not Detected (NotDetected) RSV (PCR) Not Detected (NotDetected) Entero/Rhino (PCR) Not Detected (NotDetected) 04/10/24 04/10/24 04/10/24 Range/Units 12:46 17:58 22:15 WBC 5.42 (4.8-10.8) K/ul RBC 3.15 L (4.20-5.40) M/uL Hgb 7.7 L (12.0-16.0) g/dl Hct 24.7 L (37.0-47.0) % MCV 78.4 L (80.0-100.0) fL MCH 24.4 L (25.0-34.0) pg MCHC 31.2 L (32.0-36.0) g/dL RDW Std Deviation 50.7 H (36.4-46.3) fL RDW Coeff of Luisa 17.8 H (11.5-14.5) % Plt Count 202 (130-400) K/uL MPV 10.6 (9.4-12.4) fL Reticulocyte % (Auto) (0.50-2.00) % Reticulocyte # (0.020-0.100) 10^6/uL D-Dimer 1930 H* (0-500) ug/L FEU Sodium (136-145) mmol/L Potassium (3.5-5.1) mmol/L Chloride (98-107) mmol/L Carbon Dioxide (21-32) mmol/L Anion Gap (3-11) BUN (6-23) mg/dl Creatinine (0.6-1.2) mg/dl Est Cr Clr Drug Dosing ml/min eGFR BUN/Creatinine Ratio (10-20) Glucose (70-99(Fasting)) mg/dl Calcium (8.6-10.3) mg/dl Magnesium (1.7-2.4) mg/dl Iron (35-150) mcg/dl TIBC (250-450) mcg/dl Transferrin (200-360) mg/dl Transferrin % Sat (15-50) % Ferritin (8-388) ng/ml Urine Color Yellow Urine Appearance Clear (Clear) Urine pH 6.5 (4.5-7.5) Ur Specific [place] 1.022 (1.000-1.030) Urine Protein Negative (Negative) Urine Glucose (UA) Negative (Negative) Urine Ketones Negative (Negative) Urine Blood 1+ H (Negative) Urine Nitrite Negative (Negative) Urine Bilirubin Negative (Negative) Urine Urobilinogen Negative (Negative) Ur Leukocyte Esterase Negative (Negative) Urine WBC (Auto) 0-5 (0-5) /hpf Urine RBC (Auto) 6-10 H (0-2) /hpf U Hyaline Cast (Auto) 0-2 (0-2) /lpf U Epithel Cells (Auto) 0-2 (0-2) /hpf Urine Bacteria (Auto) None Seen (None Seen) Adenovirus (PCR) (NotDetected) B. pertussis DNA (PCR) (NotDetected) B.parapertussis DNA PCR (NotDetected) C. pneumoniae DNA (PCR) (NotDetected) Coronavirus OC43 (PCR) (NotDetected) Coronavirus HKU1 (PCR) (NotDetected) Coronavirus 229E (PCR) (NotDetected) SARS-CoV-2 (PCR) (NotDetected) Coronavirus NL63 (PCR) (NotDetected) Human Metapneumovir PCR (NotDetected) Influenza Type A (PCR) (NotDetected) Influenza Type B (PCR) (NotDetected) M. pneumoniae (PCR) (NotDetected) Parainfluenza 1 (PCR) (NotDetected) Parainfluenza 2 (PCR) (NotDetected) Parainfluenza 3 (PCR) (NotDetected) Parainfluenza 4 (PCR) (NotDetected) RSV (PCR) (NotDetected) Entero/Rhino (PCR) (NotDetected) Diagnostic Findings PELVIC US: CLINICAL HISTORY: heterogenous uterus noted on CT TECHNIQUE: Real-time sonographic images of the pelvic contents were obtained with transabdominal and transvaginal technique. Comparison: Comparison is made to CT abdomen pelvis 04/09/2024 FINDINGS: The uterus measures 7.9 x 4.0 x 7.4 cm. The endometrial cavity echo stripe measures 0.4 cm in thickness. Multiple fibroids are seen, largest on the right measuring 2.7 x 2.1 x 2.8 cm, likely subserosal, and a posterior myometrial fibroid measuring 1.9 x 2.3 x 2.0 cm. The right ovary measures 4.0 x 1.8 x 2.3 cm. The left ovary measures 3.1 x 1.5 x 4 cm. Normal appearance of the ovaries bilaterally. Doppler flow is seen bilaterally. There was no fluid in the cul-de-sac. IMPRESSION: Multiple fibroids are seen as above. The endometrium is unremarkable in this patient with heavy menstrual flow. (2) Fibroid, uterine Uterine leiomyoma location: subserous Qualified Code(s): D25.2 - Subserosal leiomyoma of uterus
[2024-04-11 06:40] LABS: Basophils # (auto) 0.01 K/uL (0.00-0.20); Basophils % (auto) 0.2 %; Eosinophils # (auto) 0.03 K/uL (0.00-0.50); Eosinophils % (auto) 0.7 %; Hematocrit (blood only) 25.3 % (37.0-47.0); Hemoglobin 8.1 g/dl (12.0-16.0); Immature Granulocytes # (auto) 0.04 K/uL (0.01-0.20); Immature Granulocytes % (auto) 0.9 %; Lymphocytes # (auto) 1.07 K/uL (1.20-3.40); Lymphocytes % (auto) 23.3 %; Mean Corpuscular Hemoglobin 24.8 pg (25.0-34.0); Mean Corpuscular Volume 77.4 fL (80.0-100.0); Mean Platelet Volume 10.2 fL (9.4-12.4); Monocytes # (auto) 0.54 K/uL (0.11-0.59); Monocytes % (auto) 11.8 %; Neutrophils % (auto) 63.1 %; Platelet Count 197 K/uL (130-400); RDW Coefficient of Variation 17.5 % (11.5-14.5); RDW Standard Deviation 49.1 fL (36.4-46.3); Red Blood Count 3.27 M/uL (4.20-5.40); White Blood Count 4.59 K/ul (4.8-10.8)
[2024-04-11 07:03] LABS: BUN Creatinine Ratio 6.6 (10-20); Calcium 8.2 mg/dl (8.6-10.3); Creatinine Clr Calc Pharmacy 100.4 ml/min; Magnesium 1.9 mg/dl (1.7-2.4); Potassium 3.2 mmol/L (3.5-5.1)
[2024-04-11 07:13] VITALS: RESP 18; O2SAT 99
[2024-04-11 07:21] LABS: Thyroid Stimulating Hormone 0.647 uIu/ml (0.300-4.500)
--- NOTE | 2024-04-11 07:37 | Hospitalist Progress Note ---
Date of Service April 11, 2024 Assessment & Plan (1) Intractable nausea: Plan: 28yo female presenting with ongoing nausea, multiple episodes of non-bloody/non-bilious emesis. Patient wtih ongoing sinus tachycardia, blood pressure is adequate. Labs from earlier today with mild leukocytosis, no electrolyte derangement or SUGEY. CT as above with mild ileus. Of note, ER visit 04/09 reporting possible food poisoning/pot luck at school Obs medical IVF continued x 2 L NSS KUB on repeat w/o ileus/obstruction and does have +BS but denies passing gas. No vomiting but will monitor on clears Hgb 7.8 but notable did get 2L IVF on admission and continued on NS @ 125cc/hr and suspect some aspect of dilution but also on day 5 of very heavy mensus/period --> Pelvic US noting Multiple fibroids are seen as above. The endometrium is unremarkable in this patient with heavy menstrual flow. Iron studies obtained given microcytosis and LOW Iron 10, TIBC 354, Transferrin 253, Trans % sat 3, ferritin 19. Venofer IV has been ordered and will plan to continue daily. Suspect GIOVANA contributing to her tachycardia/syncope w/ heavy menses. Notable did have fever/blood cx obtained but doesn't appear infectious. Fecal occult to be obtained with next BM as below to ensure no GIB, but no significant upper abd tenderness to suggest and just finishing her period Likely benefit from APPEALS AND GENERALIST CLERK f/u for fibroids. Discussed w/ supervising provider and given young age/menses, defer on any PRBC but will monitor focb. PPI bid empirically added, notable did take some ibuprofen but doesn't not appear significant use and reported 4-6 tablets past week for pain related to period. UA w/ 2+ blood but suspect related to bleeding from her period but should have repeat UA once done with such to ensure resolved Continue antiemetics, Tylenol as needed for fever/pain Monitor labs/exam in AM, further testing pending ongoing fevers, peripheral smear ordered 04/11 Tx to monitored bed last evening given elevated ddimer/tachycardia/fever. No further temps. ?other viral illness vs food poisionin BCx pending. , no further temps CTA chest negative for PE, notable subsegmental atelectasis but has remained on room air Has been using incentive spirometer BP stable 106/70 and HR improved following completion of IVF/Venofer Peripheral smear pending, LDH not elevated 139 Procal 0.33, f/u blood cx. Could have minor elevation from anemia Continue Venofer IV, 300mg daily (day 2) Wanting to go, increase to low fiber given +BS/flatus, monitor for bowels. KUB nonobstructive yesterday. APPEALS AND GENERALIST CLERK saw, rec geoff outpt, to arrnage. Pt doesn't seem interested but strongly encouraged. Should Should also have repeat UA outpatient to eval for any hematuria once period resolved/referral as needed. (2) Tachycardia: Plan: CXR on admission w/ reported infiltrates left lung lower zone raising suspicion for infection with blunting of costophrenic angles --> IVF has been provided, repeat CXR obtained given temp overnight and infiltrates appear less conspicious per report however did send for blood cultures but defer on abx at this time and will add procal to AM labs and f/u blood cx UA not appearing infected/no bacteria, does note blood (suspected from having menses) HR appears improving with Venofer/IVF however remains slightly tachycardic however again as above has had heavy bleeding from period/fibroids on uterus and will monitor Biofire sent given temp, negative Peripheral smear added given anemia, grandmother with sickle cell but denies personal history of such. Denies pleuritic CP at this time/on room air however did drive from [place] to [place] as missed flight. Denies any leg swelling this past week either but will monitor. Defer chemoproph given heavy bleeding at this time but will place SCDs. Will also add Ddimer for completeness but notable no hypoxia If ongoing bleeding following completion of period may need to reach out to APPEALS AND GENERALIST CLERK given US (3) Microcytosis: Plan: with acute on chronic anemia from heavy bleeding, notable MCV <80 at 77 and Iron studies obtained: Iron 10, TIBC 354, Transferrin 253, Trans % sat 3, ferritin 19 --Venofer IV has been ordered and will continue. Suspect 2nd to menses however checking fecal occult (denied blood in stool/dark tarry color however did have some recent NSAID use but not heavy) No hx inflammatory bowel disease, does have hx lactose intolerance Reports grandmother with sickle cell but no personal hx Peripheral smear pending for further eval to ensure no abn findings Avoid NSAIDs w/ bleeding/anemia Monitor CBC in AM, TSH/LDH as well (4) Anemia: Plan: suspected acute on chronic with her period but will add additional testing for eval, check fecal occult with next bowel movement and continue venofer replacement. monitor CBC in AM, avoid NSAID Plan Depression/Anxiety- -Continue Wellbutrin 100mg po BID -- changed to 200mg qam -Continue Prozac 20mg po daily Pre-DM -Hold Metformin with ongoing GI distress, Dispo: continued inpatient stay, monitoring blood counts/bowel movements. possible APPEALS AND GENERALIST CLERK/GI consult if needed however suspected from being actively on her period. Blood cultures sent given temp/biofire negative, can check stool biofire given concerns for possible food poisioning/illness RN PACU. Discussed with supervising provider and defer on abx at this time/monitor Given tachycardia/hypotension on arrival and now with temp, ddimer added, if positive will need CTA chest/tx to monitored bed and likely need some transfusion support however she DENIED pleuritc CP and is not hypoxic Admission and Anticipated Discharge Date Admission Date: April 09, 2024 Subjective Eval this morning, doing much better, HR controlled. No further fevers. CTA negative for PE, has been using incentive spirometer. Discussed passing gas, is hungry/wanting advancement of diet. Will try low fiber/if tolerates can consider discharge. Discussed bleeding/OCP, mirena/APPEALS AND GENERALIST CLERK f/u, she prefers to avoid mirena, however did discuss would highly recommend. No further lightheaded/dizziness with standing, improvement in hydration. Addional venofer for today and hgb improving. Possible dc this afternoon after tolerating diet advancement. Results & Data Results & Data Vital Signs (Past 12 Hours) Vital Signs Temp Pulse Pulse Resp BP BP Pulse Ox 04/11/24 07:13 36.9 C 90 18 106/70 99 04/11/24 07:00 94 H 04/11/24 03:55 37.2 C 98 H 16 106/68 98 04/10/24 21:58 108 H 04/10/24 21:00 04/10/24 21:00 36.8 C 109 H 16 113/78 100 04/10/24 20:58 106 H O2 Del Method 04/11/24 07:13 Room Air 04/11/24 07:00 04/11/24 03:55 Room Air 04/10/24 21:58 04/10/24 21:00 Room Air 04/10/24 21:00 Room Air 04/10/24 20:58 PG Care Time/CCT Total # of Minutes Spent Total Time Spent with Patient: Total time spent is greater than 50% in coordination of care (as documented) at patient's floor/unit and/or counseling patient: Coding Diagnoses Intractable nausea R11.0 Tachycardia R00.0 Microcytosis R71.8 Anemia D64.9
[2024-04-11] MEDS: IRON SUCROSE 300 MG in SODIUM CHLORIDE 0.9% 250 ML IV SCH (08:17)
[2024-04-11] MEDS: POTASSIUM CHLORIDE CRTAB 20 MEQ TABCR PO STA (08:17)
[2024-04-11] MEDS: buPROPion SR 100 MG TABCR PO SCH (08:19)
[2024-04-11 08:31] LABS: Estimated Average Glucose 111 mg/dl; Hemoglobin A1C 5.5 % (4.5-5.6)
--- NOTE | 2024-04-11 09:19 | XRay Report ---
XR chest 2V PA/lateral CLINICAL HISTORY: follow up, eval [facility] COMPARISON STUDY: Chest radiograph and chest CT April 10, 2024. FINDINGS: Lung volumes are normal. There is no consolidation to suggest pneumonia. Minimal left basil ar density favors atelectasis. There is no pneumothorax. Trace bilateral pleural effusions are unchan ged. Cardiac size is normal. Mediastinal contours are normal. There is no evidence for pulmonary fiordaliza a. IMPRESSION: 1. No consolidation to suggest pneumonia. Minimal left basilar opacity suggestive of atelectasis. 2. Trace bilateral pleural effusions similar to prior exam. ACT 112: Negative or not required by law. Electronically signed by: Collin Lujan M.D. 04/11/2024 9:17 AM
[2024-04-11 11:25] VITALS: BP 111/77; TEMP 97.9
--- NOTE | 2024-04-11 12:46 | Discharge Summary ---
Discharge Summary Date of Service April 11, 2024 Principal Dx & Hospital Course #1 = Principal Diagnosis (1) Intractable nausea: 28yo female presenting with ongoing nausea, multiple episodes of non-bloody/non-bilious emesis. Patient wtih ongoing sinus tachycardia, blood pressure is adequate. Labs from earlier today with mild leukocytosis, no electrolyte derangement or SUGEY. CT as above with mild ileus. Of note, ER visit 04/09 reporting possible food poisoning/pot luck at school Provided with 2L NSS on admission, continued NSS @ 125cc/hr x2 additional liters and was placed on clear liquid diet KUB on repeat without ileus/obstruction and +BS on exam but no flatus reported 04/10 and was continued on clear liquids PPI BID started and improvement in symptoms and tolerated advancement to full liquids AM 04/11 and advanced to low fiber given improvement in abd exam/passing gas, wanting to eat. Unclear if nausea related to blood loss from her period/GIOVANA vs other. Did have temp max 38.1C however nursing did report had been drinking hot water on 37.6C on 04/10 and unclear if prior elevation taken before similar experience but blood cultures were obtained and procal added which was not significantly elevated at 0.33 especially with her underlying severe iron deficiency anemia with LOW Iron 10, TIBC 354, Transferrin 253, Trans % sat 3, ferritin 19 and Venofer IV ordered x 2 doses. Notable she reports was to be on PO iron per family prior ER visit and was on day 4-5 of her menses on admission. Did report to taking 4-6 tablets of ibuprofen over the past week for discomfort from menses however no excessive use/melena reported. Fecal occult ordered but no BM prior to discharge but rec to monitor for such/GI referral outpatient for c-scope to ensure no issue. Of note, patient denied family or personal hx inflammatory bowel disease/colon ca. Pelvic US notable for multiple fibroids and [employer] consultation placed. Was on OCP last year, consideration for Mirena outpatient if agreeable but strongly encouraged to retry oral if not wanting Mirena to help control bleeding/prevent worsened anemia. Also to note, did travel from [place] to [place] and missed connecting flight/drove to [place] from [place] however denied any leg swelling/pleuritic pain and was never hypoxic but given on admission was tachycardic/febrile/hypotensive did check ddimer to r/o PE but was elevated 1900s and CTA chest for PE obtained which did NOT find any evidence for PE. She is on bupropion/fluoxetine at baseline as well as metformin for pre-DM. Reports metformin is NOT new medication and has been on for a year and has been continued, A1c well controlled 5.5. Should have repeat UA once over her period to ensure no further blood noted. If +, should have further work-up hematuria. At dc, patient tolerating low fiber/lactose free diet without issues, no further nausea and VSS with HR improved with hydration, BP stable and no further dizziness w/ standing and hgb stabilized at 8.1 and was provided 2nd dose Venfofer IV prior to dc. Going to continue PPI BID at discharge and rec f/u with [employer] as well as GI at discharge. Monitor for any melena/issues. Consideration for PO iron once moving bowels but should be on bowel regimen to prevent constipatio n with starting such. Peripheral smear was pending at time of dc, LDH NOT elevated. Blood cx remained NGTD. Suspect combination of anemia/blood loss from menses/possible reflux as well as possible gastritis as casue for admission, worsened with NSAID use for pain. Did not examine like acute GIB and denied melena but if occurs should return to ER [facility]. Stable for dc w/ f/u as outlined. (2) Gastritis: suspected as cause for above with possible nausea from menses/recent NSAID use. Biofire negative but did report possibly eating some contaminated food improvement with IVF hydration and PPI therapy and have continued PPI as above at dc and rec f/u GI for screening for anemia as above/if any issues. No hx IBD/ca or unexplained weight loss rec to avoid nsaids at dc, diet tolerated w/ advancement and tx above (3) Tachycardia: CXR on admission w/ reported infiltrates left lung lower zone raising suspicion for infection with blunting of costophrenic angles and was provided IVF on admission for dehydration and CXR repeat not as evident Denied hx DVT/PE, no leg swelling or pleuritic CP endorsed and was never hypoxic but given hypotension/tachycardia and fever(unclear if accurate temps) in setting of recent flight from [place]/drive to [place], ddimer checked to r/o PE however was elevated 1930 and CTA chest for PE was obtained which thankfully had no evidence for such. Biofire negative Peripheral smear ordered gvien anemia-- pending at ks, will need f/u Pelvic US w/ fibroids, heavy menses and suspected anemia contributing and improved with Venofer/hydration as above. HR much improved prior to dc, anxious for discharge. (4) Microcytosis: As above, acute on chronic w/ heavy menses but given MCV <80, iron studies obtained Iron 10, TIBC 354, Transferrin 253, Trans % sat 3, ferritin 19 --Venofer 300mg IV x 2 doses have been provided. Recs for PO iron once moving bowels. No hx IBD/ca/unexplained weight loss Peripheral smear ordered/pending LDH NOT elevated, TSH wnl Avoid NSAIDS recommended Rec monitoring repeat blood counts w/ [facility] in next 1-2wks to ensure improved. GI f/u for eval as above (5) Anemia: as outlined above, venofer IV x 2 and hgb improved to 8.1 prior to dc and finishing menses. No further syncope type symptoms or dizziness reported (6) Fibroid, uterine: noted, suspected cause for acute on chronic anemia. [employer] consulted/pelvic US ordered and rec for trial OCP vs Mirena in f/u STRONGLY encouraged Plan Pre-DM -Hold Metformin with ongoing GI distress, reported not new medication and on for a year. A1c acceptable and can continue at ks Anxiety/depression - continue bupropion/fluoxetine Notes For Next Care Provider Ensure repeat blood counts/electrolytes in follow up but have advanced diet an replacement ordered prior to dc and suspect will not have any issues Highly rec continued discussion for oral contraception vs Mirena/[employer] follow up to prevent worsening anemia. PO iron rec once moving bowels regularly with OTC b owel regimen. Consideration for GI ref but no family/personal hx or red flag sx Monitor for any melena/GI bleeding but denied any issues but placed on/continued protonix twice daily for coverage. Discussed monitoring for diarrhea on such. Peripheral smear noting NO blasts, schistocytes, spherocytes and infectious agents not seen however did favor iron deficiency and favors GIOVANA over thalassemia but notable absolute lymphopenia at 1.03. Recommend she have repeat CBC w/ differential and ref to hematology if abnormal. Denied personal hx sickle cell disease but has grandmother with such. Never issues before reported. F/u Medication Changes From Visit Protonix 40mg PO BID x 1 month OTC Ferrous sulfate once daily rec once moving her bowels Admission HPI Per Admitting Provider Magalys Lyles is a 28yo female presenting with one day of nausea, vomiting and PO intolerance. Patient reports waking this AM at 05:00 with the feeling of "butterflies" in her abdomen. She tried to go back to sleep but woke shortly later and vomited. She continued to vomit throughout the day - food and liquid, non-bloody/non-bilious. She was seen in the ER earlier this afternoon with these complaints and was administered IV Zofran and IV Phenergan with improvement in symptoms. She was discharged home with a prescription for Zofran ODT. She had recurrence of the nausea in the parking lot so returned to the ER. Overall she feels improved but still with ongoing nausea. She denies abdominal pain or distention, no diarrhea, no fever/chills/chest pain/cough or SOB. No URI symptoms. She recently traveled from [place]. No contacts with similar symptoms. She did eat at a pot-luck last night for school and had mashed potatoes, gravy and green beans. Is lactose intolerant. In the ER she is afebrile, tachycardic, blood pressure presently 98/62 ER Course: NSS x 1L Phenergan 12.5mg IV Compazine Discharge Exam General: 28 yo female sitting in up bed today, appears MUCH better this afternoon, improved fatigue, just finished her low fiber diet for lunch, anxious for discharge, NAD HEENT: head atraumatic, normocephalic, mm improved/moist Resp: even/unlabored, slightly diminished in the bases/faint crackles (IM PROVED/resolved with use of incentive spirometer in room) 99% on RA, no tachypnea CV: RRR, no m/r/g, no pitting edema/calf tenderness, pulses present GI: +BS throughout, improved, soft, nontender, no rebound/guarding no pappas, voiding spontaneously MSK/Neuro: nonfocal but generalized fatigue Psych: AOx3, less fatigued/improved today, cooperative with exam Discharge Plan Discharge Items Patient Disposition: Home - Self-Care Reason For Visit: INTRACTABLE NAUSEA Discharge Diagnosis: Intractable nausea/vomiting, possible gastroenteritis, gastritis, anemia Goals: You have been hospitalized for an acute medical problem. During your stay at [facility], we have made an effort to correct the problem that brought you to the hospital while keeping you as comfortable as possible. Medications were used to bring your condition under control and your discharge instructions will include directions for any medications you should take after leaving the hospital. Please make sure you see your Primary Care Provider as part of your follow up plan. Activity: As commented below Non-emergency contact: Primary Care Provider and Specialist Call non-emergency contact if: you have any medication questions, your symptoms worsen, your pain is concerning for you and you have a fever Follow-up/Referrals: Cale Horton DO [Physician] - Denise Cloud MD [Physician] - [facility] [Non-Staff] - Dagmar Viveros D.O. [Primary Care Provider] - Diet: Low Fiber and Lactose Intolerant Diet Comment: advance diet as tolerated Addtl Attending Provider Instructions: You have been hospitalized for nausea/discomfort. Cat scan of the chest was negative for PE (pulmonary embolism/blood clot) Cat scan of the abdomen/pelvis noted a nonspecific ileus (slowing of your bowels) but no obstruction or concerns for inflammatory/infectious causes but could have had something you ate contributing to symptoms. Pelvic ultrasound noted multiple uterine fibroids and [employer] was consulted and I strongly encourage you to have follow up to discuss alternative control options to help with your bleeding as you were found to be quite anemic and your iron stores were VERY LOW. We have given you two doses of IV iron and are sending oral iron supplementation to start taking once moving your bowels regularly and ensure not having any darkened/tarry stools which would indicate possible bleeding in the upper GI tract. If no issues and moving bowels, would recommend starting at least once daily if not twice daily with over the counter bowel regimen/stool softener to prevent constipation. Gastroenterology referral is being placed at discharge as well but can be cancelled if not having any issues but have been started on protonix twice daily for possible gastritis from ibuprofen use as well and are continuing twice daily. As discussed, would avoid any excessive ibuprofen/motrin/aleve use and utilize tylenol for pain at this time to prevent worsened anemia. Your urine sample showed blood but suspected likely due to being on your period at this time but is recommended to have repeat urine testing once off your period to make sure no further bleeding/blood which would indicate need for further evaluation. Peripheral smear was sent to eval anemia but is pending at discharge and should be followed up with primary care/[facility]. Blood cultures were obtained but have been negative and procalcitonin was obtained and was not significantly elevated to indicate bacterial infection and can also be slightly elevated due to anemia, which you do have. Please follow up with primary care/[facility] in the next week for follow up. PLEASE HAVE REPEAT BLOOD COUNTS WITH DIFFERENTIAL to ensure resolution in lymphopenia which could be due to viral process but need to ensure resolved. If remains low, consideration for referral to hematology for ongoing testing. Your discharge summary will be sent to [facility] and can help to coordinate your care/follow up on outpatient lab testing but please make sure to also follow up with your usual doctor. Please return to the ER with any increased discomfort, nausea, fever, inability to tolerate oral intake, increased bleeding/dizziness, dark stools, or for any other symptoms concerning for you. Pending Studies at Discharge: Yes Studies:: Blood cultures -- no growth to date Stand-Alone Forms: My [facility], Smoking Cessation Medications and DC Order Prescriptions: New pantoprazole 40 mg Tablet,Delayed Release (Dr/Ec) 40 mg PO BID Qty: 60 0RF Continued ondansetron 4 mg tablet,disintegrating 4 mg PO Q6H PRN (Reason: nausea and vomiting) Qty: 10 0RF bupropion HCl 100 mg tablet sustained-release 12 hr 100 mg PO BID fluoxetine 20 mg tablet 20 mg PO DAILY metformin 500 mg Tablet Extended Release 24 Hr 500 mg PO DAILY Discontinued ibuprofen 200 mg Tablet 200 mg PO Q6H PRN (Reason: Pain) Discharge Orders: Discharge Order (Routine); Ordered 04/11/24 Ordered By: Nery Mccarthy Admission Data Admit Date/Time: 04/09/24 22:23 Attending Provider: Beatriz Higgins Admit Provider: Dolores Barksdale Primary Care Provider: Dagmar Viveros Other Providers: Denise Cloud Hospital Stay Data Consultations 04/10/24 18:23 Consult Gynecology Routine Diagnostic Imagining Performed Abdomen/Pelvis CT 04/09/24 16:28 EXAM: CT Abdomen and Pelvis With Intravenous Contrast INDICATION: Nausea, vomiting and abdominal pain. TECHNIQUE: Axial computed tomography images of the abdomen and pelvis with intravenous contrast. Sagittal and coronal reformatted images were created and reviewed. This CT exam was performed using one or more of the following dose reduction techniques: automated exposure control, adjustment of the mA and/or kV according to patient size, and/or use of iterative reconstruction technique. CONTRAST: 92ml of Optiray 320 was administered intravenously. COMPARISON: No relevant prior studies available. FINDINGS: Limitations: None. Lung bases: No abnormality noted. Pleural space: No visualized pleural effusion or pneumothorax. Heart: No abnormality noted. Mediastinum: No abnormality noted. ABDOMEN: Liver: No abnormality noted. Gallbladder and bile ducts: No calcified stones or surrounding fluid. Pancreas: Homogeneous enhancement. No mass, inflammation or ductal dilation. Spleen: No significant abnormality noted. Adrenals: No significant abnormality noted. Kidneys and ureters: Simple left renal cyst/s. No simple cyst follow-up necessary. Right kidney appears normal. No renal stone, hydronephrosis or perinephric fluid. The right kidney appears normal. Stomach and bowel: Typical amounts of formed stool noted in the cecum, descending colon and rectum. There is mild prominent fluid layering in distal small bowel loops. No obstructing point. No thickening or inflammatory process noted. The stomach is collapsed and suboptimally assessed. PELVIS: Appendix: The appendix is not distinctly defined. No inflammatory process identified in its expected location. Bladder: No filling defects to suggest mass or large stone. No inflammation. Reproductive: Heterogeneous appearance of the uterus. Possible fibroid in the fundus measuring approximately 2.3 x 1.7 cm. ABDOMEN and PELVIS: Intraperitoneal space: No free air. No significant fluid collection. Bones/joints: No acute changes. Soft tissues: No significant abnormality noted. Vasculature: No abdominal aortic aneurysm. Lymph nodes: No pathologically enlarged lymph nodes. IMPRESSION: 1. Minimal nonspecific ileus without inflammatory process or obstruction. 2. Heterogeneous appearance of the uterus with possible fibroid. Consider nonemergent ultrasound. ACT 112: Negative or not required by law. Electronically signed by Marcia Hopkins 04-09-2024 5:10 PM Chest X-Ray 04/10/24 00:31 EXAM: XR chest 1V portable CLINICAL HISTORY: FEVER NOT PREG WTW TECHNIQUE: An X-ray image of the chest is obtained in AP projection. COMPARISON: No prior studies are available for comparison. FINDINGS: Pulmonary Parenchyma: Possible infiltrates in left lung lower zone No evidence of consolidation, collapse. No pulmonary nodules are identified. Minimal blunting of both costophrenic angle seen Heart and Mediastinum: Heart size and shape are normal. No mediastinal widening or masses. Both saqib appear prominent Bony Thorax: Bony thorax appears intact without fractures or deformities. Soft Tissues: Soft tissues overlying the chest wall are unremarkable. IMPRESSION: 1. Possible infiltrates in the left lung lower zone, raising the suspicion of infection 2. Minimal blunting of both costophrenic angles is likely due to pleural thickening/small effusion. Ultrasound correlation is advised 3. Bilateral hilar Vascular congestion with possibility of bilateral hilar lymph nodes. Electronically signed by Rick Hicks 04-10-2024 01:26 AM Pelvis Ultrasound 04/10/24 06:41 US pelvic complete CLINICAL HISTORY: heterogenous uterus noted on CT TECHNIQUE: Real-time sonographic images of the pelvic contents were obtained with transabdominal and transvaginal technique. Comparison: Comparison is made to CT abdomen pelvis 04/09/2024 FINDINGS: The uterus measures 7.9 x 4.0 x 7.4 cm. The endometrial cavity echo stripe measures 0.4 cm in thickness. Multiple fibroids are seen, largest on the right measuring 2.7 x 2.1 x 2.8 cm, likely subserosal, and a posterior myometrial fibroid measuring 1.9 x 2.3 x 2.0 cm. The right ovary measures 4.0 x 1.8 x 2.3 cm. The left ovary measures 3.1 x 1.5 x 4 cm. Normal appearance of the ovaries bilaterally. Doppler flow is seen bilaterally. There was no fluid in the cul-de-sac. IMPRESSION: Multiple fibroids are seen as above. The endometrium is unremarkable in this patient with heavy menstrual flow. ACT 112: Negative or not required by law. Electronically signed by: Alan Franco M.D. 04/10/2024 9:48 AM Chest X-Ray 04/10/24 08:00 XR chest 1V portable CLINICAL HISTORY: f/u TECHNIQUE: Single frontal radiograph of the chest was obtained. Comparison: Comparison is made to chest radiograph 04/10/2024 FINDINGS: No lines and tubes are seen. The cardiomediastinal silhouette is normal. The lungs are clear, previously noted left lower lung densities are less conspicuous on this exam. No evidence of pleural effusion or pneumothorax. IMPRESSION: No acute abnormalities and in particular no radiographic evidence of pneumonia. ACT 112: Negative or not required by law. Electronically signed by: Alan Franco M.D. 04/10/2024 9:49 AM KUB X-Ray 04/10/24 08:02 XR KUB/Abdomen 1 view CLINICAL HISTORY: f/u ileus TECHNIQUE: 1 view of the abdomen was obtained. Comparison: Comparison is made to CT abdomen pelvis 04/09/2024 FINDINGS: Lung bases are unremarkable. The osseous structures are grossly unremarkable. A paucity of small bowel gas is seen. Small stool burden is seen. IMPRESSION: There is a paucity of small bowel gas limiting evaluation. Small stool burden is seen. ACT 112: Negative or not required by law. Electronically signed by: Alan Franco M.D. 04/10/2024 9:53 AM Chest CTA 04/10/24 18:55 Exam(s): CTA CHEST IV Amt: 119ml opti 320 EXAM: CT Angiography Chest With Intravenous Contrast CLINICAL HISTORY: Evaluate for potential pulmonary embolism. TECHNIQUE: Axial computed tomographic angiography images of the chest with intravenous contrast. CTDI is 15.11 mGy and DLP is 378.46 mGy-cm. Automated exposure control was utilized for the study. A dose lowering technique was utilized adhering to the principles of ALARA. MIP reconstructed images were created and reviewed. COMPARISON: No relevant prior studies available. FINDINGS: Limitations: There is mild respiratory artifact, which minimally degrades image quality on multiple image slices. Pulmonary arteries: Accounting for mild respiratory artifact, there is no definite evidence for pulmonary embolism. Aorta: No acute findings. No thoracic aortic aneurysm. Lungs: Expiratory lung volumes with expected dependent subsegmental atelectatic changes. No focal airspace consolidation. Pleural space: Unremarkable. No significant effusion. No pneumothorax. Heart: Unremarkable. No cardiomegaly. No significant pericardial effusion. Bones/joints: No acute fracture. No dislocation. Soft tissues: Unremarkable. Lymph nodes: Unremarkable. No enlarged lymph nodes. IMPRESSION: 1. Accounting for mild respiratory artifact, there is no definite evidence for pulmonary embolism. 2. Expiratory lung volumes with expected dependent subsegmental atelectatic changes. No focal airspace consolidation. No pleural effusion or pneumothorax. Electronically signed by: Angus Ryan MD 04/10/24 23:03 PM Chest X-Ray 04/11/24 07:00 XR chest 2V PA/lateral CLINICAL HISTORY: follow up, eval PNA COMPARISON STUDY: Chest radiograph and chest CT April 10, 2024. FINDINGS: Lung volumes are normal. There is no consolidation to suggest pneumonia. Minimal left basilar density favors atelectasis. There is no pneumothorax. Trace bilateral pleural effusions are unchanged. Cardiac size is normal. Mediastinal contours are normal. There is no evidence for pulmonary edema. IMPRESSION: 1. No consolidation to suggest pneumonia. Minimal left basilar opacity suggestive of atelectasis. 2. Trace bilateral pleural effusions similar to prior exam. ACT 112: Negative or not required by law. Electronically signed by: Collin Lujan M.D. 04/11/2024 9:17 AM Discharge Instructions Given to Patient (Per Discharging Provider) You have been hospitalized for nausea/discomfort. Cat scan of the chest was negative for PE (pulmonary embolism/blood clot) Cat scan of the abdomen/pelvis noted a nonspecific ileus (slowing of your bowels) but no obstruction or concerns for inflammatory/infectious causes but could have had something you ate contributing to symptoms. Pelvic ultrasound noted multiple uterine fibroids and [employer] was consulted and I strongly encourage you to have follow up to discuss alternative control options to help with your bleeding as you were found to be quite anemic and your iron stores were VERY LOW. We have given you two doses of IV iron and are sending oral iron supplementation to start taking once moving your bowels regularly and ensure not having any darkened/tarry stools which would indicate possible bleeding in the upper GI tract. If no issues and moving bowels, would recommend starting at least once daily if not twice daily with over the counter bowel regimen/stool so ftener to prevent constipation. Gastroenterology referral is being placed at discharge as well but can be cancelled if not having any issues but have been started on protonix twice daily for possible gastritis from ibuprofen use as well and are continuing twice daily. As discussed, would avoid any excessive ibuprofen/motrin/aleve use and utilize tylenol for pain at this time to prevent worsened anemia. Your urine sample showed blood but suspected likely due to being on your period at this time but is recommended to have repeat urine testing once off your period to make sure no further bleeding/blood which would indicate need for further evaluation. Peripheral smear was sent to [facility] but is pending at discharge and should be followed up with primary care/[facility]. Blood cultures were obtained but have been negative and procalcitonin was obtained and was not significantly elevated to indicate bacterial infection and can also be slightly elevated due to anemia, which you do have. Please follow up with primary care/[facility] in the next week for follow up. PLEASE HAVE REPEAT BLOOD COUNTS WITH DIFFERENTIAL to ensure resolution in lymphopenia which could be due to viral process but need to ensure resolved. If remains low, consideration for referral to hematology for ongoing testing. Your discharge summary will be sent to [facility] and can help to coordinate your care/follow up on outpatient lab testing but please make sure to also follow up with your usual doctor. Please return to the ER with any increased discomfort, nausea, fever, inability to tolerate oral intake, increased bleeding/dizziness, dark stools, or for any other symptoms concerning for you. 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
[2024-04-11 15:09] VITALS: PULSE 86
--- NOTE | 2024-04-11 21:13 | Electrocardiogram Report ---
Test Reason : Blood Pressure : */* mmHG Vent. Rate : 111 BPM Atrial Rate : 111 BPM P-R Int : 112 ms QRS Dur : 88 ms QT Int : 336 ms P-R-T Axes : * 12 60 degrees QTcB Int : 457 ms Sinus tachycardia Nonspecific T wave abnormality Abnormal ECG When compared with ECG of 09-Apr-2024 19:41, Nonspecific T wave abnormality, worse in Lateral leads Confirmed by Tai Cantu ([id number]) on 04/11/2024 9:12:44 PM Referred By: REFERRED SELF Confirmed By: Tai Cantu
== END 2024-04-11 16:12 | disposition home or self-care (01) ==
LOC: 3W 16:11 → ED 16:11 → 3W 22:00 → SUATTDRO 22:23 → 2N 04-10 20:44